=== PATIENT | male | born 1995 | race African-American/Black ===

== ENCOUNTER 2019-10-24 00:15 | Emergency (ER) | payer SELFPAY ==
[~2019-10-24] VITALS: Ht 170.2 cm; Wt 63.5 kg
[2019-10-24 00:30] VITALS: BP 119/76
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
[2019-10-24] MEDS ORDERED: HYDROcodone/Acetamin 5/325 tab ORAL ONE (00:45)
[2019-10-24] MEDS ORDERED: IBUPROFEN600 M1 ORAL (01:21)
[2019-10-24] MEDS ORDERED: HYDROCODON-ACE1 EA15 ORAL (01:21)
[2019-10-24 01:45] VITALS: BP 118/81
--- NOTE | 2019-10-24 09:55 | Diagnostic Imaging Report ---
Indication: Hand trauma, pain, right hand, infarct or Technique: 3 views right hand Comparison: none Findings: There is a comminuted oblique fracture which is distracted by about 5 mm of the shaft of the second carpal. There is a fracture deformity of the fifth metacarpal head/neck. There is suggestion of a fracture line so this may be acute or subacute. The joint spaces are preserved. Impression: Positive for second metacarpal shaft fracture. This agrees with the preliminary interpretation reported by the emergency room physician in the electronic medical record Fifth metacarpal fracture, age indeterminate. Correlate with clinical findings. This finding was described to Dr. Grier in the emergency room by phone at the time of interpretation
== END 2019-10-24 01:45 | disposition home or self-care (01) ==
LOC: EMR 00:43
DX: S62.320A Displaced fracture of shaft of second metacarpal bone, right hand, initial encounter for closed fracture (principal); W22.8XXA Striking against or struck by other objects, initial encounter; Y93.9 Activity, unspecified; Y92.810 Car as the place of occurrence of the external cause
CPT/HCPCS: 29125; 99283

== ENCOUNTER 2020-05-28 19:55 | Emergency (ER) | payer MEDICAID ==
[~2020-05-28] VITALS: Ht 170.2 cm; Wt 59.0 kg
[~2020-05-28 19:55] MED LIST: HYDROCODON-ACE1 EA15 ORAL; IBUPROFEN600 M1 ORAL
[2020-05-28 20:11] VITALS: BP 140/90
[2020-05-28] MEDS ORDERED: Lidocaine 1% MPF 10mg/ml 5ml INJ ONE (20:30)
[2020-05-28] MEDS ORDERED: Tetanus/Diptheria/Pertussis IM ONE (20:30)
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
[2020-05-28 22:40] VITALS: BP 140/90
[2020-05-28] MEDS ORDERED: AUGMENTIN 875-1 EAC1 ORAL (23:02)
== END 2020-05-28 23:04 | disposition home or self-care (01) ==
LOC: EMR 21:00
DX: S01.511A Laceration without foreign body of lip, initial encounter (principal); Y04.2XXA Assault by strike against or bumped into by another person, initial encounter; Y93.9 Activity, unspecified; Y92.9 Unspecified place or not applicable; Z23 Encounter for immunization
CPT/HCPCS: 12013; 90471; 90715; Z7502; 10060; 99282